=== PATIENT | male | born 1935 | race Caucasian/White ===

== ENCOUNTER → 2018-11-03 | Outpatient (CLI) | payer MEDICARE ==
[~2018-11-03] MED LIST: CETI10TA16 PO; GABA300C18 PO; HYDR-2145 PO; LOSA100T14 PO; METF500T16 PO; METO10TA81 PO; OMEP20CA10 PO
[2018-11-03 14:29] LABS: BASO % 1 % (0-3); EOS # 0.1 x10^3/uL (0.0-0.7); EOS % 1 % (0-3); HEMATOCRIT 40.9 % (39.0-53.0); HEMOGLOBIN 14.1 g/dL (13.0-17.5); LYMPH # 1.3 x10^3/uL (1.0-4.8); LYMPH % 16 % (24-48); MEAN CORPUSCULAR HEMOGLOBIN 30 pg (25-35); MEAN CORPUSCULAR HGB CONC 35 g/dL (31-37); MEAN CORPUSCULAR VOLUME 87 fL (79-100); MONO # 0.8 x10^3/uL (0.0-1.1); MONO % 10 % (0-9); NEUT # 5.8 x10^3uL (1.8-7.7); NEUT % 72 % (31-73); PLATELET COUNT 230 x10^3/uL (140-400); RED BLOOD COUNT 4.72 x10^6/uL (4.30-5.70); RED CELL DISTRIBUTION WIDTH 13.6 % (11.5-14.5)
[2018-11-03 14:44] LABS: ALBUMIN 3.5 g/dL (3.4-5.0); ALBUMIN/GLOBULIN RATIO 1.1 (1.0-1.7); CALCIUM 9.2 mg/dL (8.5-10.1); CREATININE 0.9 mg/dL (0.7-1.3); POTASSIUM 4.3 mmol/L (3.5-5.1); TOTAL BILIRUBIN 0.5 mg/dL (0.2-1.0); TOTAL PROTEIN 6.8 g/dL (6.4-8.2)
== END | disposition home or self-care (01) ==
LOC: SURGPAT 13:31
PROVIDERS: ATTEND Neurological Surgery
DX: Z01.818 Encounter for other preprocedural examination (principal); M48.062 Spinal stenosis, lumbar region with neurogenic claudication; Z91.040 Latex allergy status; Z91.048 Other nonmedicinal substance allergy status
CPT/HCPCS: 36415; 80053; 85025; 87641

== ENCOUNTER 2018-11-11 05:43 | Observation (INO) | payer MEDICARE ==
--- NOTE | 2018-11-10 12:57 | PREOP HP ---
DATE OF SERVICE: 11/11/2018 Jm Sanders RN dictating for Dr. Saud Oswald. DATE OF SURGERY: 11/11/2018 HISTORY OF PRESENT ILLNESS: The patient is a pleasant 83-year-old who underwent lumbar fusion in 1962 and did well from that. Ten years ago, he underwent surgery at L1-L2 and L3-L4 with decompression and did well again. His current problem has been present over the last year or so and is slowly progressive. He has pain in his left hip and feelings of weakness. Standing and walking increases feelings of weakness and he complains of immobility of the left hip. He takes gabapentin, which he says helps him. He has had pain management including epidural steroid injections, which have not given him significant relief as recently as 1 year ago. He ambulates with a cane. PAST MEDICAL HISTORY: Arthritis, artificial knees bilaterally, hepatitis A, hypertension, diabetes. PAST SURGICAL HISTORY: Lumbar surgery in 1962; cholecystectomy; esophageal dilation 1986, 1996; esophageal split 1997; esophageal surgery in 1998; bilateral knee replacement in 2005; colonoscopy in 2009; cervical surgery in 2009. FAMILY HISTORY: Diabetes and hypertension. SOCIAL HISTORY: Retired. . Exercises daily. Smokes cigars. Denies drinking alcohol. Drinks coffee. ALLERGIES: LATEX and ADHESIVE TAPE. CURRENT MEDICATIONS: Hydrochlorothiazide, metformin, losartan, metoclopramide, omeprazole, gabapentin. REVIEW OF SYSTEMS: A 12-point review of systems was obtained and is noncontributory except that mentioned above. PHYSICAL EXAMINATION: NEUROSURGERY EXAMINATION: GENERAL APPEARANCE: Alert, pleasant, in no acute distress. HEAD: Normocephalic and atraumatic. SKIN: Warm and dry. Well-healed lumbar incision. MUSCULOSKELETAL: Lumbar paraspinal muscle bulk is normal, restricted range of motion of the lumbar spine, [id number] tenderness of lower lumbar spine with palpation, normal range of motion of the lower extremities bilaterally. EXTREMITIES: No clubbing, cyanosis or edema. NEUROLOGIC: Alert and oriented x 3, normal recent and remote memory, strength 5/5 in bilateral lower extremities, sensory was intact to light touch in bilateral lower extremities. Reflexes were trace and symmetric in the lower extremities bilaterally, negative straight leg raising bilaterally, ambulates with a cane. IMAGING: Reviewed. I reviewed a lumbar MRI scan. There are extensive postoperative changes at L2-L3 and there are more moderate central canal stenosis. However, at L3-L4, there is severe canal stenosis present at L4 through sacrum, he has undergone extensive fusion surgery. ASSESSMENT: Spinal stenosis, lumbar region with neurogenic claudication. PLAN: His problems are neurogenic claudication type pattern with increasing problems in the hip and inguinal region, as well as anterior lateral thigh with standing and activities, and is improved with sitting. At this point, I feel that the severe stenosis at L3-L4 should be addressed. I outlined the surgery and the risks with both the patient and his and son. I would perform the operation with BrainLAB guidance and that he has had such extensive surgery in the past. He understands my concerns. He would like to go ahead. We will make the arrangements. SAUD OSWALD MD DR: MIRANDA/renyn JOB#: [id number] / [id number]
[~2018-11-11] VITALS: Ht 180.3 cm; Wt 114.0 kg
[2018-11-11] MEDS ORDERED: THROMBIN TOPICAL 20,000 UNIT SPRAY.SYRN KIT TP ONE (05:56)
[2018-11-11] MEDS ORDERED: BUPIVAC MPF-EPI 0.5%-1:200000 30 ML VIAL. ONE (05:56)
[2018-11-11] MEDS ORDERED: GELATIN SPONGE SIZE 12-7MM SPONGE. ONE ×2 (05:56→05:57)
[2018-11-11] MEDS ORDERED: KETOROLAC 60 MG/2 ML INJ FOR OR. ONE (05:56)
[2018-11-11] MEDS ORDERED: ceFAZolin 2GM PREMIX 2 GM/50 ML BAG IV ONE (06:00)
[2018-11-11] MEDS ORDERED: BACITRACIN 50,000 UNIT in IV NORMAL SALINE 1000ML BAG 1,000 ML IRR ONE (06:00)
[2018-11-11] MEDS ORDERED: HYDROmorphone 2 MG/ML VIAL IV PRN (07:00)
[2018-11-11] MEDS ORDERED: fentaNYL PF VIAL 100 MCG/2 ML VIAL IV PRN ×2 (07:00)
[2018-11-11] MEDS ORDERED: IV RINGERS,LACTATED 1000ML 1,000 ML IV SCH (07:00)
[2018-11-11] MEDS ORDERED: ONDANSETRON PF 4 MG/2 ML VIAL. IV PRN ×2 (07:00→12:30)
[2018-11-11] MEDS ORDERED: MORPHINE SULFATE 2 MG/ML VIAL. IV PRN (07:00)
[2018-11-11] MEDS ORDERED: PROPOFOL 100 ML IV ONE (07:10)
[2018-11-11] MEDS ORDERED: ROCURONIUM 50 MG/5 ML VIAL. ONE (08:19)
[2018-11-11] MEDS ORDERED: fentaNYL PF VIAL 100 MCG/2 ML VIAL ONE (08:19)
[2018-11-11] MEDS ORDERED: GLYCOPYRROLATE 1 MG/5 ML VIAL. ONE (08:19)
[2018-11-11] MEDS ORDERED: NEOSTIGMINE METHYLSULFATE 5 MG/5 ML SYRINGE. ONE (08:20)
[2018-11-11] MEDS ORDERED: REMIFENTANIL 2 MG VIAL. IV ONE (08:20)
[2018-11-11] MEDS ORDERED: PHENYLEPHRINE in 0.9% NACL PF 1 MG/10 ML SYRINGE. IV ONE (08:20)
[2018-11-11] MEDS ORDERED: DEXAMETHASONE SOD PHOS 4 MG/ML VIAL ONE (08:21)
[2018-11-11] MEDS ORDERED: PROPOFOL 20 ML IV ONE (08:21)
[2018-11-11] MEDS ORDERED: ONDANSETRON PF 4 MG/2 ML VIAL. ONE (08:21)
[2018-11-11] MEDS ORDERED: LIDOCAINE 2% PF 5 ML VIAL. ONE (08:21)
[2018-11-11] MEDS ORDERED: PHENYLEPHRINE 10 MG/ML VIAL. ONE (08:27)
--- NOTE | 2018-11-11 08:35 | RAD ---
CT of the lumbar spine without contrast, 11/11/2018: HISTORY: Lumbar stenosis, brain lab study Noncontrast scans were obtained with multiplanar reconstructions produced. The data was transferred to the operating room to aid in the patient's stereotactically guided surgery. The following findings are delineated: 1. There is moderate hypertrophic spurring throughout the lumbar spine with bony bridging anteriorly at multiple levels. There are extensive degenerative changes involving the facet joints bilaterally with fusion of some of those facet joints. No fracture or subluxation is evident. 2. At L1-2 there is moderate broad-based posterior disc bulging. There is posterior ligamentous thickening. The combination of findings is causing moderate central spinal stenosis with the thecal sac measuring approximate 6 mm in AP diameter at the midline. 3. At L2-3 there is moderate posterior marginal spurring which is most prominent laterally on both sides. There are moderate degenerative changes involving the facet joints. The combination of findings is causing moderate central spinal stenosis similar to that seen at L1-2. 3. At L3-4 there is moderate broad-based posterior disc bulging and marginal spurring. There are moderate degenerative changes involving the facet joints. The combination of findings is causing moderate central spinal stenosis in a triangular configuration with the thecal sac measuring approximate 5 mm in AP diameter at the midline. There is moderate inferior foraminal narrowing on the left. 4. At L4-5 there is mild posterior spurring. There is fusion of the posterior elements at L4-5 and L5-S1 which is likely postsurgical. No significant central spinal stenosis is present at this level. There is only mild inferior foraminal narrowing due to the spurring at this level. At L5-S1 there is moderate posterior spurring at the midline. The thecal sac measures 10 mm in AP diameter at the midline. There is only mild inferior foraminal narrowing bilaterally. Incidental note is made of a large hiatal hernia extending to the right. PQRS Compliance Statement: One or more of the following individualized dose reduction techniques were utilized for this examination: 1. Automated exposure control 2. Adjustment of the mA and/or kV according to patient size 3. Use of iterative reconstruction technique PQRS Compliance Statement: One or more of the following individualized dose reduction techniques were utilized for this examination: 1. Automated exposure control 2. Adjustment of the mA and/or kV according to patient size 3. Use of iterative reconstruction technique
[2018-11-11] MEDS ORDERED: ePHEDrine PF IN SALINE 50 MG/10 ML SYRINGE. IV ONE (09:23)
[2018-11-11] MEDS ORDERED: VASOPRESSIN 20 UNIT/ML VIAL. ONE (09:26)
[2018-11-11] MEDS ORDERED: DEXTROSE 50% 25 GM / 50ML DISP.SYRIN. IV PRN ×2 (09:45→12:30)
[2018-11-11] MEDS ORDERED: INSULIN LISPRO 100 UNIT/ML 3ML VIAL for OP,RR ONLY. SQ PRN (10:15)
[2018-11-11] MEDS ORDERED: REMIFENTANIL 1 MG VIAL. IV ONE (11:42)
[2018-11-11] MEDS ORDERED: PROPOFOL 0 ML IV ONE (11:43)
[2018-11-11] MEDS ORDERED: POTASSIUM CL 20MEQ-0.45% NACL 1,000 ML IV SCH (12:16)
[2018-11-11] MEDS ORDERED: HYDR-2761 PO (12:27)
[2018-11-11] MEDS ORDERED: DOCU-109 PO (12:27)
--- NOTE | 2018-11-11 12:28 | DISCH ---
DISCHARGE INSTRUCTIONS Condition on Discharge Condition on Discharge: Stable Activity After Discharge Activity Instructions for Disc: Activity as tolerated, Avoid exertion Other activity instructions: no not drive fro a week Bathing Instructions: Shower-keep dressing dry Lifting Instructions after Dis: No heavy lifting, No pulling or pushing, Do not lift >10 pounds Diet after Discharge Additional Diet Restrictions: resume home diet Wound Incision Care Wound/Incision Care: Ice to area for comfort Other wound/incision instructi: may remove dressing tomorrow if dry, no soaking Contacting the DRHallie after DC Call your doctor for: Concerns you may have Follow-Up Follow up with: Dr. Oswald's nurse in 2 weeks [phone] CARLEY OSWALD MD Nov 11, 2018 12:28
[2018-11-11] MEDS ORDERED: MAG HYDROX/ALUMINUM HYD/SIMETH 30 ML ORAL.SUSP PO PRN (12:30)
[2018-11-11] MEDS ORDERED: 0.9 % SODIUM CHLORIDE 10 ML DISP.SYRIN. IV PRN (12:30)
[2018-11-11] MEDS ORDERED: NALOXONE 0.4 MG/ML VIAL. IV PRN (12:30)
[2018-11-11] MEDS ORDERED: CALCIUM CARBONATE 500 MG TAB.CHEW PO PRN (12:30)
[2018-11-11] MEDS ORDERED: diphenhydrAMINE HCL 25 MG CAPSULE PO PRN (12:30)
[2018-11-11] MEDS ORDERED: ACETAMINOPHEN 325 MG TABLET. PO PRN (12:30)
[2018-11-11] MEDS ORDERED: HYDROcodone/APAP 5/325MG 1 TAB TABLET PO PRN ×2 (12:30)
[2018-11-11] MEDS ORDERED: MAGNESIUM HYDROXIDE 2,400 MG/30 ML ORAL.SUSP. PO PRN (12:30)
[2018-11-11 13:15] VITALS: BP 143/65
[2018-11-11] MEDS ORDERED: HYDROcodone/APAP 5/325MG 1 TAB TABLET PO ONE (13:45)
[2018-11-11] MEDS ORDERED: metFORMIN 500 MG TABLET PO SCH (17:00)
--- NOTE | 2018-11-11 17:55 | OP ---
DATE OF SURGERY: 11/11/2018 PREOPERATIVE DIAGNOSES: 1. Previous extensive lumbar surgery with reoperation in the past, L3-L4, left. 2. Lumbar Dictation ends here. CARLEY OSWALD MD DR: MIRANDA/renny JOB#: [id number] / [id number]
--- NOTE | 2018-11-11 18:24 | OP ---
DATE OF SURGERY: 11/11/2018 PREOPERATIVE DIAGNOSES: Extensive previous lumbar surgeries including fusion L3-L4, with severe lumbar spinal stenosis and radiculopathy. POSTOPERATIVE DIAGNOSES: Extensive previous lumbar surgeries including fusion L3-L4, with severe lumbar spinal stenosis and radiculopathy. OPERATION PERFORMED: Left extensive hemilaminotomy with microdecompression of dura and nerve root L3-L4, left, with microdiscectomy L3-L4, left. The operation required BrainLAB guidance, multimodality monitoring including EMG, SSEP, fluoroscopy, microscopic dissection. SURGEON: Saud Oswald M.D. HAND UPPER AND BOTTOM LACER: INGE Doherty assisted with the surgery. She assisted with the exposure, the microdecompression as well as the closure. OPERATIVE INDICATIONS: The patient is a pleasant 83-year-old man who developed intractable back and first left hip pain and then left hip and leg weakness, severe exercise intolerance because of pain in this location, which failed conservative measures including epidural steroid injections. On imaging studies, he was found to have severe stenosis at L3-L4 and evidence of a previous extensive surgery with a fusion from the superior L4 to the sacrum combined with considerable scarring and I recommended lumbar microdecompressive surgery to see if this would not help him. Because of the loss of landmarks from his extensive surgery, I recommended the use of BrainLAB guidance to help with this operation. He understood the surgery, the risks. He wished to go ahead. DESCRIPTION OF PROCEDURE: Following general endotracheal anesthesia, the patient was positioned prone on the Won table. Lumbar region prepped and draped in standard fashion. ALISON hose and AV impulse boots were applied for DVT prophylaxis. A microscope was draped. Fluoroscopy was draped and brought into the field. Monitoring was established. Ancef 2 grams was given less than 1 hour prior to initiation of surgery. The BrainLAB system was initialized after iliac posts were placed in the right iliac crest and then, a midline incision was made extending from mid L3 to mid L4, dissected down through skin and subcutaneous tissue, reflected the paraspinal muscles and then began to work down through the dense scar to expose the area of his previous surgery and fusion. I placed a [place] microdisk retractor. I brought in the microscope and the remainder of surgery with the microscope using microscopic technique. Using the high speed air drill, I spent a considerable amount of time drilling through fusion bone and scar and exposed L3-L4 on the left. I encountered a very thickened calcified ligamentum flavum, which was densely scarred to the underlying dura and began to gently and methodically peeled this back. I did perform a generous foraminotomy and exposed the entire region. As I peeled away thickened ligamentum flavum, I was obtained an excellent decompression and I was able to peel all the ligament away exposing the underlying dura, clearly visualized the common dural sac and the exiting root. I gently retracted the root medially. The disc was bulging and had a calcified rim as above and below, which was lifting the nerve posteriorly. I gently retracted the nerve medially and using the high speed air drill, I drilled down these spurs. The disc itself was not particularly soft. I did remove some portion of the disc, which was exerting posterior pressure, but overall after this decompression and a partial removal of the disc, the region was very well decompressed. I explored carefully. I did use small amounts of bone wax, and cautery. I irrigated copiously. Hemostasis was excellent. At this point, the dura was pulsating gently, the pressure was removed. Dura had moved quite far laterally with the decompression. I irrigated and removed the retractor, obtained hemostasis in the muscle and closed the wound in layers with absorbable suture. The skin was closed with 4-0 subcuticular stitch. The operation went very well and the patient awakened in recovery room in excellent condition. SAUD OSWALD MD DR: MIRANDA/renny JOB#: [id number] / [id number] [place]
[2018-11-11] MEDS ORDERED: DOCUSATE SODIUM 100 MG CAPSULE. PO SCH (21:00)
[2018-11-11] MEDS ORDERED: GABAPENTIN 300 MG CAPSULE. PO SCH (21:00)
[2018-11-12] MEDS ORDERED: PANTOPRAZOLE 40 MG TABLET.DR. PO SCH (07:30)
[2018-11-12] MEDS ORDERED: hydroCHLOROthiazide 25 MG TABLET PO SCH (09:00)
[2018-11-12] MEDS ORDERED: METOCLOPRAMIDE 10 MG TABLET. PO SCH (09:00)
[2018-11-12] MEDS ORDERED: CETIRIZINE HCL 10 MG TABLET. PO SCH (09:00)
[2018-11-12] MEDS ORDERED: LOSARTAN POTASSIUM 50 MG TABLET. PO SCH (09:00)
--- NOTE | 2018-11-15 15:06 | PATHOLOGY ---
[facility] Accession Number: [id number] . 01 Material submitted: . vertebral column - LUMBAR DECOMPRESSION . 01 Clinical history: . Lumbar stenosis with neurogenic claudication. . 02 Diagnosis: Segments of fibrocartilaginous, fibroadipose, and skeletal muscle tissue and bone, lumbar decompression: - Degenerative changes of fibrocartilaginous tissue. (JPM:renee; 11/15/2018) QMS/11/15/2018 . 02 Comment: There is no evidence of an acute inflammatory process or malignancy. (JPM:renee; 11/15/2018) . 02 Electronically signed: . Eduard Greene MD, Pathologist NPI- [id number] . 01 Gross description: . Received in formalin labeled "Cat Mistry, lumbar decompression" is a 5.7 x 4.5 x 1.3 cm aggregate of see-pink fibrous tissue and see-white bony fragments. Cylinder Handler tissue is submitted in cassette A1 following decalcification. ([facility] – [place]; 11/13/2018) SYC/SYC . 02 Pathologist provided ICD-10: M51.36 . 02 CPT . 343890, [id number] Specimen Comment: A courtesy copy of this report has been sent to Specimen Comment: [phone]. Specimen Comment: Report sent to Performed at: 01 [facility] [address] [facility] [address], [place] [id number] MD Bharat Powers MD Phone: [phone] Performed at: 02 [facility] [address] [place], [place] [id number] MD Eduard Greene MD Phone: [phone]
== END 2018-11-11 14:48 | disposition home or self-care (01) ==
LOC: SURG 05:43 → 4 NORTH 12:22
PROVIDERS: ADMIT Neurological Surgery; ATTEND Neurological Surgery
DX: M48.062 Spinal stenosis, lumbar region with neurogenic claudication (principal); I10 Essential (primary) hypertension; E11.9 Type 2 diabetes mellitus without complications; F17.290 Nicotine dependence, other tobacco product, uncomplicated; Z82.49 Family history of ischemic heart disease and other diseases of the circulatory system; Z83.3 Family history of diabetes mellitus; Z98.1 Arthrodesis status; Z96.653 Presence of artificial knee joint, bilateral; R53.1 Weakness; B15.9 Hepatitis A without hepatic coma; M19.90 Unspecified osteoarthritis, unspecified site
CPT/HCPCS: 63047; 72131; 76000; 82962; 88304; 88311; 97162; A7015; G0378; G0379; J0171; J0696; J1100; J1885; J2001; J2370; J2405; J2704; J2710; J3010; J3490; J7030; J7120